=== PATIENT | female | born 1995 | race Caucasian/White ===

== ENCOUNTER 2018-05-06 21:27 | Emergency (ER) | payer OTHER ==
[~2018-05-06] VITALS: Ht 147.3 cm; Wt 66.0 kg
[2018-05-07] MEDS ORDERED: TETANUS, DIPHTHERIA, PERTUSSIS VAC/PF 0.5ML (>7YR OLD) IM ONE (02:15)
[2018-05-07] MEDS ORDERED: BACITRACIN ZINC OINT UDPKT TOP ONE (02:15)
[2018-05-07 03:00] VITALS: BP 98/55
== END 2018-05-07 03:00 | disposition home or self-care (01) ==
LOC: ER 21:27
DX: S50.812A Abrasion of left forearm, initial encounter (principal); W45.8XXA Other foreign body or object entering through skin, initial encounter; F17.200 Nicotine dependence, unspecified, uncomplicated; Y93.89 Activity, other specified; Y92.89 Other specified places as the place of occurrence of the external cause; Y99.8 Other external cause status
CPT/HCPCS: 90471; 90715; 99283